=== PATIENT | female | born 1985 | race American Indian/Alaskan Native ===

== ENCOUNTER 2019-06-13 12:12 | Emergency (ER) | payer MEDICAID ==
[2019-06-13 12:29] VITALS: BP 106/61
--- NOTE | 2019-06-13 12:30 | Emergency Department Report ---
Abscess Boil HPI - HPI Chief Complaint: Dental/Oral Stated Complaint: TOOTH ACHE/ Time Seen by Provider: 06/13/19 12:29 Duration: 4 Days Location: Other Severity: Mild History: Yes Pain, No Fever, No Purulent Drainage, No Numbness, No Foreign Body, No Previous History, No Insect Bite HPI: TO ER CO L LOWER MOLAR PAIN. NO ABSCESS. 5 M. NO FEVER. TAKING PO. NO VAG BLEED OR DC. NO ABD PAIN. Home Medications: Previous Rx's Medication Instructions Recorded Last Taken Type Amoxicillin [Trimox CAP] 500 mg PO Q8H #30 capsule 06/13/19 Unknown Rx Allergies/Adverse Reactions: Allergies Allergy/AdvReac Type Severity Reaction Status Date / Time No Known Allergies Allergy Verified 06/13/19 12:26 ED Review of Systems ROS: Stated complaint: TOOTH ACHE/ Other details as noted in HPI Comment: All other systems reviewed and negative ED Past Medical Hx - Past Medical History Previous Medical History?: Yes Hx Asthma: Yes - Surgical History Past Surgical History?: No - Family History Family history: no significant - Social History Smoking Status: Never Smoker Substance Use Type: None - Medications Home Medications: Home Medications Medication Instructions Recorded Confirmed Last Taken Type Amoxicillin [Trimox CAP] 500 mg PO Q8H #30 capsule 06/13/19 Unknown Rx ED Abscess Boil Physical Exam - Exam General: Vital signs noted. No distress. Alert and acting appropriately. Exam: Yes Normal Neurologic Exam, Yes Normal Circulation, No Tenderness, No Fluctuance, No Heart Murmur ED Course Vital Signs 06/13/19 12:26 Temperature 98.1 F Pulse Rate 72 Respiratory 16 Rate Blood Pressure 106/61 [Right] O2 Sat by Pulse 98 Oximetry Critical care attestation.: If time is entered above; I have spent that time in minutes in the direct care of this critically ill patient, excluding procedure time. ED Medical Decision Making - Medical Decision Making simple dental pain tooth no 16 no trevor no abscess taking po no fever no trismus dc home with dc plan of care and dmd follow up Vital Signs 06/13/19 12:26 Temperature 98.1 F Pulse Rate 72 Respiratory 16 Rate Blood Pressure 106/61 [Right] O2 Sat by Pulse 98 Oximetry ED Disposition Clinical Impression: Pain, dental, Disposition: DC-01 TO HOME OR SELFCARE Is pt being admited?: No Does the pt Need Aspirin: No Condition: Stable Instructions: Dental Caries (ED), Toothache (ED) Additional Instructions: VIT DAILY AMOX ORDERED TODAY CONTINUE TYLENOL FOR PAIN FOLLOW UP WITH DMD AKILAH DRINK MILK DAILY Prescriptions: Amoxicillin [Trimox CAP] 500 mg PO Q8H #30 capsule Referrals: [facility] [Outside] - 3-5 Days [facility] [Outside] - 3-5 Days Time of Disposition: 12:32
== END 2019-06-13 12:50 | disposition home or self-care (01) ==
LOC: ED 12:12
DX: O26.899 Other specified pregnancy related conditions, unspecified trimester (principal); K08.89 Other specified disorders of teeth and supporting structures; O99.519 Diseases of the respiratory system complicating pregnancy, unspecified trimester; J45.909 Unspecified asthma, uncomplicated; Z3A.00 Weeks of gestation of pregnancy not specified
CPT/HCPCS: 99282

== ENCOUNTER → 2019-07-15 | Emergency (ER) | payer MEDICAID ==
[~2019-07-15] MED LIST: LACTATED RINGERS 500 ML IV ONE
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
== END ==
LOC: TRG 13:52 → ED 13:52 → TRG 13:52 → EDSTATUS 18:18
DX: Z53.21 Procedure and treatment not carried out due to patient leaving prior to being seen by health care provider (principal)
CPT/HCPCS: 76815

== ENCOUNTER 2019-10-13 23:09 | Inpatient (IN) | payer MEDICAID ==
[2019-10-13] MEDS ORDERED: LACTATED RINGERS 1,000 ML IV ONE (23:51)
[2019-10-14] MEDS ORDERED: ACETAMINOPHEN 325 MG TAB PO PRN (00:20)
--- NOTE | 2019-10-14 00:29 | History and Physical Report ---
History of Present Illness Date of examination: 10/14/19 Date of admission: 10/14/2019 Chief complaint: Contractions History of present illness: 34 year old presents with complaint of contractions. Patient receives care at [facility] and was able to access records via computer. LMP 02/09/19. EDC 11/09/19 (by 8 week, 6 day US). 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 labs are as follows: B+, antibody screen negative, rubella immune, hepatitis B surface antigen negative, HIV negative, RPR nonreactive, varicella immune, HSV 2 positive, hemoglobin electrophoresis AA, chlamydia negative, gonorrhea negative, trichomonas negative, OSB negative, panorama low risk. Past History Past Medical History: asthma, other (anemia) Past Surgical History: no surgical history [employer] History: herpes (on Valtrex suppression). denies: abnormal PAP smear, chlamydia, gonorrhea, hepatitis B, hepatitis C, HIV, syphilis, trichomonas Family/Genetic History: diabetes Social history: single, full code. denies: smoking, alcohol abuse, prescription drug abuse, IV drug use - Obstetrical History Expected Date of Delivery: 11/09/19 Actual Gestation: 36 Week(s) 2 Day(s) : 11 Para: 4 Hx # Term Pregnancies: 3 Number of Pregnancies: 1 Spontaneous Abortions: 2 Induced : 4 Number of Living Children: 4 Medications and Allergies Allergies Allergy/AdvReac Type Severity Reaction Status Date / Time No Known Allergies Allergy Verified 10/14/19 00:31 Home Medications Medication Instructions Recorded Confirmed Last Taken Type Amoxicillin [Trimox CAP] 500 mg PO Q8H #30 capsule 06/13/19 Unknown Rx Active Meds: Active Medications Acetaminophen (Tylenol) 650 mg PO Q4H PRN PRN Reason: Pain MILD(1-3)/Fever >100.5/SUNG Lactated Ringer's (Lactated Ringers) 1,000 mls @ 999 mls/hr IV BOLUS ONE Stop: 10/14/19 00:51 Lactated Ringer's (Lactated Ringers) 1,000 mls @ 125 mls/hr IV DIRECT [facility] Multivitamins/Iron/Calcium ( Vitamin) 1 each PO QDAY [facility] Review of Systems All systems: negative (contractions) - Vital Signs Vital signs: Vital Signs Pulse BP 86 120/69 10/13/19 23:35 10/13/19 23:35 Temp Pulse Resp BP Pulse Ox 73 111/63 10/13/19 23:55 10/13/19 23:55 - Physical Exam Abdomen: Positive: normal appearance, soft. Negative: distention, tenderness, guarding, rigidity Genitourinary (Female): Positive: normal external genitalia, normal perenium. Negative: perineal/vulvar lesions (no lesions noted on careful exam with bright light upon admission) Vagina: Positive: normal moisture Uterus: Positive: enlarged. Negative: tender Anus/Rectum: Positive: normal perianal skin Extremities: Positive: normal. Negative: tenderness, edema - Obstetrical FHR: category 1 Uterine Contraction Monitor Mode: External Cervical Dilatation: 3 Cervical Effacement Percentage: 80 station: 0 Uterine Contraction Pattern: Irregular Uterine Contraction Intensity: Mild Results Result Diagrams: 10/14/19 00:30 All other labs normal. Assessment and Plan A: at 36 2/7 weeks gestation. contractions. Noncompliant patient. HSV 2 positive serology, noncompliant with medications. P: Observe overnight. Continuous EFM. IV hydration. Urinalysis and drug screen. Valtrex 500 mg po BID. Discussed with patient importance of compliance with taking Valtrex and her other home medications.
[2019-10-14 01:08] LABS: Basophils % (Auto) 0.3 % (0.0-1.8); Eosinophils % (Auto) 0.4 % (0.0-4.3); Hematocrit 31.1 % (30.3-42.9); Hemoglobin 10.4 gm/dl (10.1-14.3); Lymphocytes # (Auto) 1.5 K/mm3 (1.2-5.4); Lymphocytes % (Auto) 20.3 % (13.4-35.0); Mean Corpuscular HGB Conc 33 % (30-34); Mean Corpuscular Volume 84 fl (79-97); Monocytes # (Auto) 0.5 K/mm3 (0.0-0.8); Monocytes % (Auto) 7.4 % (0.0-7.3); Platelet Count 133 K/mm3 (140-440); Red Blood Count 3.73 M/mm3 (3.65-5.03); Red Cell Distribution Width 13.5 % (13.2-15.2)
[2019-10-14 01:23] LABS: Amphetamine Screen,Urine PRESUMPTIVE NEGATIVE; Benzodiazepines Screen,Urine PRESUMPTIVE NEGATIVE; Cannabinoid Screen,Urine PRESUMPTIVE NEGATIVE; Cocaine Screen,Urine PRESUMPTIVE NEGATIVE; Methadone Screen,Urine PRESUMPTIVE NEGATIVE; Opiate Screen,Urine PRESUMPTIVE NEGATIVE
[2019-10-14 01:24] LABS: Bilirubin,Urine NEG (Negative); Blood,Urine NEG (Negative); Color,Urine Straw (Yellow); Mucus,Urine FEW /HPF; Protein,Urine <15 mg/dL mg/dL (Negative); Urobilinogen,Urine < 2.0 mg/dL (<2.0)
[2019-10-14] MEDS: valACYclovir 500 MG TAB PO SCH ×3 (02:12→22:07)
[2019-10-14] MEDS: LACTATED RINGERS 1,000 ML IV SCH ×2 (02:13→22:09)
[2019-10-14] MEDS: PRENATAL VIT27-FE FUMARATE-FOLIC ACID VIT TAB PO SCH (10:28)
--- NOTE | 2019-10-14 10:28 | Progress Note ---
Assessment and Plan A: at 36 weeks, 2 days gestation. contractions. History of previous . BHAVANI 5.8 cm. Negative fern test, negative vaginal speculum exam. No evidence of ROM. Lack of social support; patient reports she desires to deliver . P: Social service consult. Discussed with patient risks of delivering and that she needs to wait until she is full term to deliver as long as she and fetus are doing well. Had long discussion with patient re: need to take her medications as prescribed. milk processing worker to see pt. Continue IV hydration. Repeat BHAVANI tomorrow AM. Continuous EFM. Continue Valtrex suppression of HSV. GBS swab done. Spoke with Dr. Aleman re: this patient and she recommended keeping patient in hospital until tomorrow, having social science research assistant see patient due to the above social risk factors. Subjective - Subjective Date of service: 10/14/19 Principal diagnosis: at 36 weeks, 2 days gestation Interval history: Patient observed overnight for contractions. Patient has had steroids for FLM during hospital admission in early August. Patient denies vaginal bleeding and states her contractions have become less frequent overnight. Patient denies leaking of water. Reviewed FHR tracing from overnight. A few brief variable FHR decelerations with rapid return to baseline noted on review of tracing. No variable noted now. Category 1 tracing. BHAVANI 5.8 cm per US this AM. BPP 8/8. Patient reports active movement. No cervical changed noted on SVE. Patient states she has recently moved here from [place] and has no family or friends here; states she does not have a support system here in [place] and if, needed, does not even have anyone to drive her anywhere in case of emergency. Patient states she has not been taking her Valtrex at home as prescribed for HSV suppression. She also refused Jenny injections during her and states she has not been taking the vaginal progesterone that was prescribed to her on a regular basis. Patient states she wants to deliver early. Patient reports: movement normal, contractions, no new complaints, no loss of fluid, no vaginal bleeding Objective - Vital Signs Vital Signs: Vital Signs - 12hr 10/13/19 10/13/19 10/13/19 23:30 23:35 23:55 Temperature 97.4 F L Pulse Rate 86 86 73 Respiratory 18 Rate Blood Pressure 120/69 111/63 Blood Pressure 120/69 [Left] O2 Sat by Pulse Oximetry 10/14/19 10/14/19 07:28 09:16 Temperature 98.2 F Pulse Rate 74 74 Respiratory 16 Rate Blood Pressure 127/56 Blood Pressure 127/56 [Left] O2 Sat by Pulse 97 Oximetry - Exam Narrative Exam: BHAVANI 5.8 cm. BPP 8/8. Speculum exam performed: no pooling noted; thick white vaginal discharge noted. Fern test negative. Urine seen coming from urethra when patient coughs. Abdomen: Present: normal appearance, soft. Absent: distention, tenderness, guarding, rigidity Uterus: Present: normal, firm, fundal height above umbilicus. Absent: bogginess, tenderness FHR: category 1 Uterine Contraction Monitor Mode: External Cervical Dilatation: 3 Cervical Effacement Percentage: 80 station: 0 Uterine Contraction Pattern: Irregular Uterine Contraction Intensity: Mild Extremities: normal - Labs Labs: Abnormal Labs 10/14/19 00:30 Plt Count 133 L [place] % (Auto) 7.4 H Seg Neutrophils % 71.6 H Laboratory Results - last 24 hr 10/13/19 10/13/19 10/14/19 23:00 23:00 00:30 WBC 7.5 RBC 3.73 Hgb 10.4 Hct 31.1 MCV 84 MCH 28 MCHC 33 RDW 13.5 Plt Count 133 L Lymph % (Auto) 20.3 [place] % (Auto) 7.4 H Eos % (Auto) 0.4 Baso % (Auto) 0.3 Lymph # 1.5 [place] # 0.5 Eos # 0.0 Baso # 0.0 Seg Neutrophils % 71.6 H Seg Neutrophils # 5.3 Urine Color Straw Urine Turbidity Clear Urine pH 6.0 Ur Specific [place] 1.010 Urine Protein <15 mg/dl Urine Glucose (UA) Neg Urine Ketones Neg Urine Blood Neg Urine Nitrite Neg Urine Bilirubin Neg Urine Urobilinogen < 2.0 Ur Leukocyte Esterase Neg Urine WBC (Auto) 1.0 Urine RBC (Auto) 1.0 U Epithel Cells (Auto) 1.0 Urine Mucus Few Urine Opiates Screen Presumptive negative Urine Methadone Screen Presumptive negative Ur Barbiturates Screen Presumptive negative Ur Phencyclidine Scrn Presumptive negative Ur Amphetamines Screen Presumptive negative U Benzodiazepines Scrn Presumptive negative Urine Cocaine Screen Presumptive negative U Marijuana (THC) Screen Presumptive negative Drugs of Abuse Note Disclamer Blood Type Antibody Screen 10/14/19 00:30 WBC RBC Hgb Hct MCV MCH MCHC RDW Plt Count Lymph % (Auto) [place] % (Auto) Eos % (Auto) Baso % (Auto) Lymph # [place] # Eos # Baso # Seg Neutrophils % Seg Neutrophils # Urine Color Urine Turbidity Urine pH Ur Specific [place] Urine Protein Urine Glucose (UA) Urine Ketones Urine Blood Urine Nitrite Urine Bilirubin Urine Urobilinogen Ur Leukocyte Esterase Urine WBC (Auto) Urine RBC (Auto) U Epithel Cells (Auto) Urine Mucus Urine Opiates Screen Urine Methadone Screen Ur Barbiturates Screen Ur Phencyclidine Scrn Ur Amphetamines Screen U Benzodiazepines Scrn Urine Cocaine Screen U Marijuana (THC) Screen Drugs of Abuse Note Blood Type B POSITIVE Antibody Screen Negative
--- NOTE | 2019-10-14 10:31 | Ultrasound Report ---
ULTRASOUND BIOPHYSICAL PROFILE INDICATION / CLINICAL INFORMATION: BHAVANI. COMPARISON: None available. FINDINGS: BREATHING MOVEMENT = 2 GROSS BODY MOVEMENT = 2 TONE = 2 QUALITATIVE AMNIOTIC FLUID VOLUME = 2 TOTAL BIOPHYSICAL SCORE = 8/8 AMNIOTIC FLUID INDEX (cm) = 5.8 PRESENTATION: Cephalic. HEART RATE (beats per minute): 134 IMPRESSION: 1. biophysical profile = 8/8 2. Mildly decreased amniotic fluid index, measuring 5.8 cm. Signer Name: Hans Desai MD Signed: 10/14/2019 10:26 AM Workstation Name: [email or web address]
--- NOTE | 2019-10-14 12:06 | Progress Note ---
Subjective - Subjective Date of service: 10/14/19 Principal diagnosis: at 36 weeks, 2 days gestation Interval history: Patient seen and examined on AM rounds. Agree with CNM progress assessment and plan of care. Patient defensive during exam and history taking. Concern for lack of social support Not in labor. Maternal/ well-being reassuring overall. Plan for discharge to home tomorrow. Annette Aleman MD Patient reports: movement normal, contractions, no new complaints, no loss of fluid, no vaginal bleeding Objective - Vital Signs Vital Signs: Vital Signs - 12hr 10/14/19 10/14/19 10/14/19 07:28 09:16 11:35 Temperature 98.2 F 97.6 F Pulse Rate 74 74 74 Respiratory 16 18 Rate Blood Pressure 127/56 Blood Pressure 127/56 108/55 [Left] O2 Sat by Pulse 97 99 Oximetry 10/14/19 11:36 Temperature Pulse Rate 74 Respiratory Rate Blood Pressure 108/55 Blood Pressure [Left] O2 Sat by Pulse Oximetry - Labs Labs: Abnormal Labs 10/14/19 00:30 Plt Count 133 L [place] % (Auto) 7.4 H Seg Neutrophils % 71.6 H Laboratory Results - last 24 hr 10/13/19 10/13/19 10/14/19 23:00 23:00 00:30 WBC 7.5 RBC 3.73 Hgb 10.4 Hct 31.1 MCV 84 MCH 28 MCHC 33 RDW 13.5 Plt Count 133 L Lymph % (Auto) 20.3 [place] % (Auto) 7.4 H Eos % (Auto) 0.4 Baso % (Auto) 0.3 Lymph # 1.5 Keith # 0.5 Eos # 0.0 Baso # 0.0 Seg Neutrophils % 71.6 H Seg Neutrophils # 5.3 Urine Color Straw Urine Turbidity Clear Urine pH 6.0 Ur Specific [place] 1.010 Urine Protein <15 mg/dl Urine Glucose (UA) Neg Urine Ketones Neg Urine Blood Neg Urine Nitrite Neg Urine Bilirubin Neg Urine Urobilinogen < 2.0 Ur Leukocyte Esterase Neg Urine WBC (Auto) 1.0 Urine RBC (Auto) 1.0 U Epithel Cells (Auto) 1.0 Urine Mucus Few Urine Opiates Screen Presumptive negative Urine Methadone Screen Presumptive negative Ur Barbiturates Screen Presumptive negative Ur Phencyclidine Scrn Presumptive negative Ur Amphetamines Screen Presumptive negative U Benzodiazepines Scrn Presumptive negative Urine Cocaine Screen Presumptive negative U Marijuana (THC) Screen Presumptive negative Drugs of Abuse Note Disclamer Blood Type Antibody Screen 10/14/19 00:30 WBC RBC Hgb Hct MCV MCH MCHC RDW Plt Count Lymph % (Auto) Keith % (Auto) Eos % (Auto) Baso % (Auto) Lymph # Keith # Eos # Baso # Seg Neutrophils % Seg Neutrophils # Urine Color Urine Turbidity Urine pH Ur Specific [place] Urine Protein Urine Glucose (UA) Urine Ketones Urine Blood Urine Nitrite Urine Bilirubin Urine Urobilinogen Ur Leukocyte Esterase Urine WBC (Auto) Urine RBC (Auto) U Epithel Cells (Auto) Urine Mucus Urine Opiates Screen Urine Methadone Screen Ur Barbiturates Screen Ur Phencyclidine Scrn Ur Amphetamines Screen U Benzodiazepines Scrn Urine Cocaine Screen U Marijuana (THC) Screen Drugs of Abuse Note Blood Type B POSITIVE Antibody Screen Negative
[2019-10-15] MEDS ORDERED: ZOLPIDEM 5 MG TAB PO ONE (00:15)
[2019-10-15] MEDS: valACYclovir 500 MG TAB PO SCH (09:29)
[2019-10-15] MEDS: PRENATAL VIT27-FE FUMARATE-FOLIC ACID VIT TAB PO SCH (09:29)
--- NOTE | 2019-10-15 09:37 | Progress Note ---
Assessment and Plan - Patient Problems (1) 36 weeks gestation of Current Visit: Yes Status: Acute (2) labor in third trimester without delivery Current Visit: Yes Status: Acute Plan to address problem: No contractions present Patient declined elementary school social worker consult If BPP/BHAVANI normal, will discharge to home today Keep scheduled appointment at [facility] on 10/16/19 or follow-up as needed (3) Oligohydramnios in third trimester Current Visit: Yes Status: Acute Qualifiers: Fetus number: single or unspecified fetus Qualified Code(s): O41.03X0 - Oligohydramnios, third trimester, not applicable or unspecified Plan to address problem: BHAVANI 5.8cm on 10/14/19 Repeat BPP/BHAVANI today Subjective - Subjective Date of service: 10/15/19 Principal diagnosis: IUP @ 36 weeks 3 days, Labor, Oligohydramnios Interval history: see H&P and OB Progress Notes Patient reports: movement normal, contractions, no new complaints, no loss of fluid, no vaginal bleeding Objective - Vital Signs Vital Signs: Vital Signs - 12hr 10/15/19 10/15/19 10/15/19 00:30 04:15 08:04 Temperature 97.9 F 98.5 F Pulse Rate 73 75 76 Respiratory 18 16 Rate Blood Pressure 107/56 97/51 99/55 Blood Pressure 107/56 97/51 [Right] O2 Sat by Pulse Oximetry 10/15/19 08:25 Temperature 97 F L Pulse Rate 76 Respiratory 20 Rate Blood Pressure Blood Pressure 99/55 [Right] O2 Sat by Pulse 97 Oximetry - Exam FHR: auscultation normal, category 1 FHR comments: baseline 135, moderate variability, 15x15 accels, no decels Uterine Contraction Monitor Mode: External Cervical Dilatation: 3 Cervical Effacement Percentage: 60 station: -1 Uterine Contraction Pattern: Absent - Labs Labs: Abnormal Labs 10/14/19 00:30 Plt Count 133 L [place] % (Auto) 7.4 H Seg Neutrophils % 71.6 H
--- NOTE | 2019-10-15 10:25 | Event Note ---
Date: 10/15/19 I received a phone call from Raven MEJIA en route to the hospital that Ms. Winston has a heart murmur and needs outpatient cardiology consult after discharge from the hospital. Patient denies history of heart murmur and that she was never informed of this diagnosis. Upon review of the patient's chart there is no documentation of a heart murmur. Patient insists on inpatient cardiology consult. EKG and cardiology consult ordered.
[2019-10-15] MEDS ORDERED: fentaNYL 100 MCG/2 ML INJ IV PRN (12:30)
[2019-10-15] MEDS ORDERED: LIDOCAINE (2%) 20 MG/1 ML VIAL 20 ML MDV INFILTRATI NR (12:30)
--- NOTE | 2019-10-15 12:31 | Consultation ---
History of Present Illness Consult date: 10/15/19 Requesting physician: FLAVIO DONOVAN Consult reason: other (heart murmur) History of present illness: The pt is a 34 YO female with a past medical history of asthma, anemia, anxiety. She is previously unknown to our practice. She is 36 weeks and presented with c/o abdominal pain. Her abdominal pain is currently resolved. She states that she was told her pain was r/t contractions, she is not currently in labor. She is to be discharged home today. Cardiology has been consulted for "heart murmur". Pt denies any cardiac complaints. She denies any known cardiac issues, including heart murmur. Past History Past Medical History: anemia, other (asthma) Social history: single, full code. denies: smoking, alcohol abuse, prescription drug abuse, IV drug use Medications and Allergies Allergies Allergy/AdvReac Type Severity Reaction Status Date / Time No Known Allergies Allergy Verified 10/14/19 00:31 Home Medications Medication Instructions Recorded Confirmed Last Taken Type No Known Home Medications [No 10/14/19 10/14/19 Unknown History Reported Home Medications] Active Meds: Active Medications Acetaminophen (Tylenol) 650 mg PO Q4H PRN PRN Reason: Pain MILD(1-3)/Fever >100.5/SUNG Last Admin: 10/14/19 02:57 Dose: 650 mg Documented by: Lactated Ringer's (Lactated Ringers) 1,000 mls @ 125 mls/hr IV DIRECT [facility] Last Infusion: 10/14/19 23:20 Dose: 0 mls/hr Documented by: Multivitamins/Iron/Calcium ( Vitamin) 1 each PO QDAY [facility] Last Admin: 10/15/19 09:29 Dose: 1 each Documented by: Valacyclovir HCl (Valtrex) 500 mg PO BID [facility] Last Admin: 10/15/19 09:29 Dose: 500 mg Documented by: Review of Systems Constitutional: no fever, no chills, no sweats Ears, nose, mouth and throat: no ear pain, no nose pain, no sinus pressure, no sinus pain Cardiovascular: no chest pain, no orthopnea, no palpitations, no rapid/irregular heart beat, no edema, no syncope, no lightheadedness, no shortness of breath, no high blood pressure Respiratory: no cough, no shortness of breath, no congestion, no wheezing, no pain on inspiration Gastrointestinal: abdominal pain, other (), no nausea, no vomiting, no diarrhea Genitourinary Female: , no flank pain, no dysuria, no urinary frequency, no urgency Musculoskeletal: no neck stiffness, no neck pain, no shooting arm pain, no arm numbness/tingling, no low back pain, no shooting leg pain Integumentary: no rash, no pruritis, no redness, no sores, no wounds Neurological: no head injury, no paralysis, no weakness, no parathesias, no numbness, no tingling, no seizures, no syncope Psychiatric: no anxiety Endocrine: no cold intolerance, no heat intolerance Hematologic/Lymphatic: no easy bruising, no easy bleeding Allergic/Immunologic: no urticaria, no wheezing Physical Examination Vital Signs Temp Pulse Resp BP 97.4 F L 86 18 120/69 10/13/19 23:30 10/13/19 23:30 10/13/19 23:30 10/13/19 23:30 General appearance: no acute distress HEENT: Positive: PERRL, Normocephaly, Mucus Membranes Moist Neck: Positive: neck supple, trachea midline Cardiac: Positive: Reg Rate and Rhythm, S1/S2. Negative: Audible Murmur, Systolic Murmur, Diastolic Murmur Lungs: Positive: Normal Exam Neuro: Positive: Grossly Intact Abdomen: Positive: Other () Skin: Negative: Rash Musculoskeletal: No Pain Extremities: Absent: edema Results 10/14/19 00:30 - Imaging and Cardiology EKG: report reviewed, image reviewed EKG interpretations - Telemetry EKG Rhythm: Sinus Rhythm - EKG Sinus rhythms and dysrhythmias: sinus rhythm Assessment and Plan Currently stable cardiac status. Pt's physical exam is benign, no evidence of cardiac murmur. ECG shows NSR, no acute findings. Nothing further to add from cardiac perspective at this time. Pt may discharge from cardiology standpoint. The patient has been seen in conjunction with Dr. Cárdenas who agrees with the assessment and plan of care. - Patient Problems (1) 36 weeks gestation of Current Visit: Yes Status: Acute (2) Uterine contractions during Current Visit: Yes Status: Acute
[2019-10-15] MEDS ORDERED: ePHEDrine SULFATE 50 MG/1 ML INJ IV PRN (13:00)
[2019-10-15] MEDS ORDERED: TERBUTALINE 1 MG/1 ML INJ SUB-Q PRN (13:00)
[2019-10-15] MEDS ORDERED: OXYTOCIN DRIP 30 UNITS/500 ML BAG IV SCH (13:00)
[2019-10-15] MEDS ORDERED: LACTATED RINGERS 1,000 ML IV SCH (13:00)
[2019-10-15] MEDS ORDERED: ONDANSETRON 4 MG/2 ML INJ IV PRN ×2 (13:00→20:13)
[2019-10-15] MEDS ORDERED: OXYTOCIN 20 UNIT/1000ML DRIP 20 UNITS/1,000 ML BAG IV SCH ×2 (13:00→21:00)
[2019-10-15] MEDS ORDERED: BUTORPHANOL 2 MG/1 ML INJ IV PRN (13:00)
[2019-10-15] MEDS ORDERED: MINERAL OIL 30 ML ORAL LIQD PO PRN (13:00)
--- NOTE | 2019-10-15 14:14 | Progress Note ---
Assessment and Plan - Patient Problems (1) 36 weeks gestation of Current Visit: Yes Status: Acute (2) Oligohydramnios in third trimester Current Visit: Yes Status: Acute Qualifiers: Fetus number: single or unspecified fetus Qualified Code(s): O41.03X0 - Oligohydramnios, third trimester, not applicable or unspecified Plan to address problem: BHAVANI 5.8cm on 10/14/19 Repeat BHAVANI today is 3.9cm (3) labor in third trimester without delivery Current Visit: Yes Status: Acute Plan to address problem: Induction of labor for oligohydramnios Plan of care discussed with Dr. Luna and he agreed Oxytocin ordered Ampicillin for GBS prophylaxis Anticipate vaginal delivery Subjective - Subjective Date of service: 10/15/19 Principal diagnosis: IUP @ 36 weeks 3 days, Labor, Oligohydramnios Interval history: see H&P, OB Progress Notes, Event Note and Cardiology-Consult Note Patient reports: movement normal, contractions, no new complaints, no loss of fluid, no vaginal bleeding Objective - Vital Signs Vital Signs: Vital Signs - 12hr 10/15/19 10/15/19 10/15/19 04:15 08:04 08:25 Temperature 98.5 F 97 F L Pulse Rate 75 76 76 Respiratory 16 20 Rate Blood Pressure 97/51 99/55 Blood Pressure 97/51 99/55 [Right] O2 Sat by Pulse 97 Oximetry 10/15/19 10/15/19 12:30 12:32 Temperature 97 F L Pulse Rate 86 86 Respiratory 20 Rate Blood Pressure 140/84 Blood Pressure 140/84 [Right] O2 Sat by Pulse Oximetry - Exam FHR: auscultation normal, category 1 FHR comments: baseline 135, moderate variability, 15x15 accels, no decels Uterine Contraction Monitor Mode: External Cervical Dilatation: 3 Cervical Effacement Percentage: 60 station: -1 Uterine Contraction Pattern: Absent - Labs Labs: Abnormal Labs 10/14/19 00:30 Plt Count 133 L [place] % (Auto) 7.4 H Seg Neutrophils % 71.6 H
[2019-10-15] MEDS ORDERED: AMPICILLIN/NS 2 GM/100 ML 2 GM/100 ML BAG IV ONE (14:20)
--- NOTE | 2019-10-15 14:46 | Ultrasound Report ---
Limited OB Ultrasound Biophysical profile HISTORY: Oligohydramnios, 36 weeks gestation. TECHNIQUE: Grayscale and color Doppler imaging performed. COMPARISON: Ultrasound from 10/14/2019 FINDINGS: There is a single viable intrauterine gestation which is cephalic in presentation. The hear t rate is 147 bpm. BHAVANI is low measuring 3.9 cm. The BHAVANI measured 5.8 cm yesterday. On biophysical profile, the fetus received a score of 2 out of 2 for breathing movement, movement, po sture/tone, and qualitative BHAVANI. Total score was 8 out of 8. IMPRESSION: 1. Worsened oligohydramnios measuring 3.9 cm on today's exam, 5.8 cm yesterday. 2. Normal biophysical profile. Signer Name: Ed Burch MD Signed: 10/15/2019 2:42 PM Workstation Name: [id number]
[2019-10-15] MEDS ORDERED: AMPICILLIN/NS 1 GM/50 ML 1 GM/50 ML BAG IV SCH (18:00)
--- NOTE | 2019-10-15 20:12 | Procedure Note ---
OB Delivery Note - Delivery Date of Delivery: 10/15/19 Surgeon: THANH ROCHA Estimated blood loss: 300cc - Vaginal Delivery presentation: vertex Delivery position: OA Intrapartum events: labor-<37 weeks Delivery induction: oxytocin Delivery augmentation: pitocin Delivery monitor: external FHT, external uterine Route of delivery: Delivery placenta: spontaneous Delivery cord: 3 umbilical vessels Episiotomy: none Delivery laceration: none Anesthesia: intravenous Delivery comments: Infant delivered OA and placed on Mom's chest for [id number] bonding and delayed cord clamping, cut by big sister - Infant A at 1 minute: 8 at 5 minutes: 9 Gender: Female (2852gms)
[2019-10-15] MEDS ORDERED: diphenhydrAMINE 25 MG CAP PO PRN (20:13)
[2019-10-15] MEDS ORDERED: MAGNESIUM HYDROXIDE (MOM) ORAL LIQD UDC PO PRN (20:13)
[2019-10-15] MEDS ORDERED: ACETAMINOPHEN 325 MG TAB PO PRN (20:13)
[2019-10-15] MEDS ORDERED: PROMETHAZINE 25 MG RECT SUPP PR PRN (20:13)
[2019-10-15] MEDS ORDERED: LANOLIN/ZINC/DIMETHICONE (LANSINOH) 7 GM TP PRN (20:13)
[2019-10-15] MEDS ORDERED: HYDROcodone/ACETAMINOPHEN 5-325 MG TAB PO PRN (20:13)
[2019-10-15] MEDS ORDERED: WITCH HAZEL/ GLYCERIN PAD TP PRN (20:13)
[2019-10-15] MEDS ORDERED: PROMETHAZINE 25 MG TAB PO PRN (20:13)
[2019-10-15] MEDS: IBUPROFEN 600 MG TAB PO SCH (20:37)
[2019-10-16] MEDS: IBUPROFEN 600 MG TAB PO SCH ×4 (03:58→21:57)
[2019-10-16] MEDS ORDERED: TETANUS,DIPH,PERTUSS(ACELL) VACCINE 0.5 ML SYRINGE IM ONE (06:00)
[2019-10-16] MEDS ORDERED: MEASLES, MUMPS & RUBELLA 12,500 UNIT/0.5 ML VACCINE SUB-Q ONE (06:00)
[2019-10-16 08:12] LABS: Hematocrit 28.3 % (30.3-42.9); Hemoglobin 9.3 gm/dl (10.1-14.3)
--- NOTE | 2019-10-16 09:43 | Progress Note ---
Assessment and Plan - Patient Problems (1) (normal spontaneous vaginal delivery) Current Visit: Yes Status: Acute Plan to address problem: Continue routine PP orders Anticipate d/c home tomorrow F/U in office in 6 wks for PPV (2) Anemia Current Visit: Yes Status: Acute Qualifiers: Anemia type: other cause Other causes of anemia: acute posthemorrhagic Qualified Code(s): D62 - Acute posthemorrhagic anemia Plan to address problem: Asymptomatic Continue daily iron supplementation as directed Increase iron rich foods into diet Subjective - Subjective Date of service: 10/16/19 Principal diagnosis: ; PPD#1 Interval history: See admission H & P; OB delivery summary and PP progress notes Patient reports: appetite normal, voiding normally, pain well controlled, flatus, ambulating normally [place]: doing well, bottle feeding (and ) Objective - Vital Signs Latest vital signs: Vital Signs Temp Pulse Resp BP BP Pulse Ox 10/16/19 07:59 98.3 F 61 20 105/57 97 10/16/19 04:28 98.5 F 61 20 120/71 100 10/15/19 21:55 73 109/76 10/15/19 20:52 73 131/65 10/15/19 20:22 75 114/73 10/15/19 20:07 91 H 110/68 10/15/19 20:02 89 99 10/15/19 20:00 97.9 F 97 H 16 130/72 100 10/15/19 19:57 92 H 98 10/15/19 19:52 97 H 130/72 100 10/15/19 19:26 97 H 130/79 10/15/19 17:20 97.6 F 10/15/19 17:19 74 133/85 10/15/19 12:32 97 F L 86 20 140/84 10/15/19 12:30 86 140/84 Intake and Output 10/15/19 10/16/19 10/16/19 23:59 07:59 15:59 Intake Total 23.834 240 Output Total 200 900 Balance -176.166 -660 Intake: IV 23.834 PITOCin/NS 30 UNIT/500ML 23.834 30 units In 500 ml @ 2 mls/hr IV TITR MAI Rx#: [id number] Oral 240 Output: Urine 200 900 Void 200 900 Other: Total, Intake Amount 240 Total, Output Amount 200 600 # Voids Void 1 1 Estimated Blood Loss 300 - Exam Breasts: Present: normal Cardiovascular: Present: Regular rate Lungs: Present: Normal air movement Abdomen: Present: soft Uterus: Present: firm, fundal height below umbilicus (U-2) Extremities: Present: normal Deep Tendon Reflex Grade: Normal +2 - Labs Labs: Abnormal lab results 10/16/19 Range/Units 08:02 Hgb 9.3 L (10.1-14.3) gm/dl Hct 28.3 L (30.3-42.9) %
--- NOTE | 2019-10-16 09:48 | Discharge Summary ---
Providers - Providers Date of Admission: 10/14/19 02:30 Date of discharge: 10/17/19 (0900) Attending physician: PAUL SIMMONS MD 10/14/19 09:59 Consult to Case Management [CONS] Routine Services Needed at Discharge: Beauty Consultant Additional Physician Instructions: Recently moved here from [place]. No family or friends in area. Patient reports wanting to go into labor at a gestation. Noncompliant with home medications recommended by MDs at office. 10/15/19 10:26 Consult to Physician [CONS] Routine Comment: Consulting Provider: ARSENIO RAO Physician Instructions: Reason For Exam: Heart Murmur. 36 weeks gestation Primary care physician: PAUL SIMMONS MD Hospitalization Reason for admission: IUP - , other (Oligohydramnios) Delivery: Episiotomy: none Laceration: none Other procedures: none complications: none Discharge diagnosis: other (Anemia), delivery baby: female Hospital course: See admission H & P; OB delivery summary and PP progress notes Condition at discharge: Good Disposition: DC-01 TO HOME OR SELFCARE - Discharge Diagnoses (1) (normal spontaneous vaginal delivery) Status: Acute (2) Anemia Status: Acute Qualifiers: Anemia type: other cause Other causes of anemia: acute posthemorrhagic Qualified Code(s): D62 - Acute posthemorrhagic anemia Plan - Discharge Medications Prescriptions: Ferrous Sulfate [Slow Release Iron 250 MG] 250 mg PO BID 30 Days #60 tablet.er - Provider Discharge Summary Activity: routine, no sex for 6 weeks, no heavy lifting 4 weeks, no strenuous exercise Diet: other (Iron rich diet) Instructions: routine Additional instructions: [] Smoking cessation referral if applicable(refer to patient education folder for contact #) [] Refer to [facility] Booklet Call your doctor immediately for: * Fever > 100.5 * Heavy vaginal bleeding ( >1 pad per hour) * Severe persistent headache * Shortness of breath * Reddened, hot, painful area to leg or breast * Drainage or odor from incision. * Continue daily oral iron supplementation as directed - Follow up plan Follow up: PAUL SIMMONS MD [Primary Care Provider] - 6 Weeks
[2019-10-16] MEDS: PRENATAL VIT27-FE FUMARATE-FOLIC ACID VIT TAB PO SCH (10:05)
[2019-10-16] MEDS: FERROUS SULFATE 325 MG TAB PO SCH ×2 (10:05→21:58)
[2019-10-16] MEDS: DOCUSATE SODIUM 100 MG CAP PO SCH ×2 (10:05→21:58)
[2019-10-16] MEDS: valACYclovir 500 MG TAB PO SCH (16:41)
[2019-10-17] MEDS: PRENATAL VIT27-FE FUMARATE-FOLIC ACID VIT TAB PO SCH (09:11)
[2019-10-17] MEDS: FERROUS SULFATE 325 MG TAB PO SCH (09:11)
[2019-10-17] MEDS: DOCUSATE SODIUM 100 MG CAP PO SCH (09:12)
[2019-10-17 10:00] VITALS: BP 103/63
[2019-10-18] MEDS ORDERED: FLU VACC QUAD 2019-20 (3 YR UP)/PF 60 MCG/0.5 ML SYRINGE IM ONE (12:00)
== END 2019-10-17 17:49 | disposition home or self-care (01) | DRG 774 ==
LOC: TRG 23:09 → OBSVTOIN 10-14 02:30 → LD 10-14 02:30 → OB 10-15 23:10
PROVIDERS: ADMIT Obstetrics & Gynecology; ATTEND Obstetrics & Gynecology
PROC: 10E0XZZ Delivery of Products of Conception, External Approach (ICD-10-PCS; principal; 2019-10-15)
PROC: 3E033VJ Introduction of Other Hormone into Peripheral Vein, Percutaneous Approach (ICD-10-PCS; 2019-10-15)
PROC: 3E0234Z Introduction of Serum, Toxoid and Vaccine into Muscle, Percutaneous Approach (ICD-10-PCS; 2019-10-16)
DX: O60.14X0 Preterm labor third trimester with preterm delivery third trimester, not applicable or unspecified (principal); O98.52 Other viral diseases complicating childbirth; O41.03X0 Oligohydramnios, third trimester, not applicable or unspecified; O99.52 Diseases of the respiratory system complicating childbirth; J45.909 Unspecified asthma, uncomplicated; B00.9 Herpesviral infection, unspecified; O99.02 Anemia complicating childbirth; O99.344 Other mental disorders complicating childbirth; F41.9 Anxiety disorder, unspecified; D62 Acute posthemorrhagic anemia; Z23 Encounter for immunization; Z3A.36 36 weeks gestation of pregnancy; Z37.0 Single live birth; Z83.3 Family history of diabetes mellitus; Z79.899 Other long term (current) drug therapy; Z91.19 Patient's noncompliance with other medical treatment and regimen
CPT/HCPCS: 36415; 76815; 76819; 80307; 81001; 85014; 85018; 85025; 86850; 86900; 86901; 87086; 87116; 93005; 93010; G0378; J0290; J2590; J7120

== ENCOUNTER 2019-11-08 12:49 | Emergency (ER) | payer MEDICAID ==
[2019-11-08 13:11] VITALS: BP 127/62
--- NOTE | 2019-11-08 13:11 | Event Note ---
ED Screening Note Date of service: 11/08/19 Time: 13:09 ED Screening Note: 34 y/o female comes in for tampon retained. This initial assessment/diagnostic orders/clinical plan/treatment(s) is/are subject to change based on patients health status, clinical progression and re- assessment by fellow clinical providers in the ED. Further treatment and workup at subsequent clinical providers discretion. Patient/guardian urged not to elope from the ED as their condition may be serious if not clinically assessed and managed. Initial orders include:
--- NOTE | 2019-11-08 13:53 | Emergency Department Report ---
ED Female HPI - General Chief complaint: Skin/Abscess/Foreign Body Stated complaint: TAMPON STUCK IN VAGINAL AREA/CP Time Seen by Provider: 11/08/19 13:09 Source: patient Mode of arrival: Ambulatory Limitations: No Limitations - History of Present Illness Initial comments: This is a 34-year-old female who presents to ED complaining having a tampon swathi ck in her vagina. Patient states she put the tampon in around 9 PM last night and was unable to get it out. Patient denies any fevers/chills/nausea vomiting/abdominal pain/pelvic pain or any other problems. - Related Data Previous Rx's Medication Instructions Recorded Last Taken Type Ferrous Sulfate [Slow Release Iron 250 mg PO BID 30 Days #60 tablet.er 10/16/19 Unknown Rx 250 MG] Cyclobenzaprine [Flexeril] 10 mg PO QHS PRN #10 tablet 11/19/19 Unknown Rx Naproxen [EC-Naprosyn] 500 mg PO BID PRN #14 tablet. 11/19/19 Unknown Rx Allergies Allergy/AdvReac Type Severity Reaction Status Date / Time No Known Allergies Allergy Verified 11/08/19 12:54 ED Review of Systems ROS: Stated complaint: TAMPON STUCK IN VAGINAL AREA/CP Other details as noted in HPI Comment: All other systems reviewed and negative ED Past Medical Hx - Past Medical History Hx Hypertension: No Hx Congestive Heart Failure: No Hx Diabetes: No Hx Deep Vein Thrombosis: No Hx Renal Disease: No Hx Sickle Cell Disease: No Hx Seizures: No Hx Asthma: Yes Hx COPD: No Hx HIV: No - Social History Smoking Status: Never Smoker Substance Use Type: None - Medications Home Medications: Home Medications Medication Instructions Recorded Confirmed Last Taken Type Ferrous Sulfate [Slow Release Iron 250 mg PO BID 30 Days #60 tablet.er 10/16/19 Unknown Rx 250 MG] Cyclobenzaprine [Flexeril] 10 mg PO QHS PRN #10 tablet 11/19/19 Unknown Rx Naproxen [EC-Naprosyn] 500 mg PO BID PRN #14 tablet. 11/19/19 Unknown Rx ED Physical Exam - General Limitations: No Limitations General appearance: alert, in no apparent distress - Head Head exam: Present: atraumatic, normocephalic - Eye Eye exam: Present: normal appearance - ENT ENT exam: Present: mucous membranes moist - Neck Neck exam: Present: normal inspection - Respiratory Respiratory exam: Present: normal lung sounds bilaterally. Absent: respiratory distress - Cardiovascular Cardiovascular Exam: Present: regular rate, normal rhythm. Absent: systolic murmur, diastolic murmur, rubs, gallop - GI/Abdominal GI/Abdominal exam: Present: soft, normal bowel sounds - External exam: Present: normal external exam Speculum exam: Present: normal speculum exam, vaginal bleeding (within nml limits in vault), other (closed cervix). Absent: cervical discharge, foreign body, tissue, laceration Bi-manual exam: Present: normal bi-manual exam - Extremities Exam Extremities exam: Present: normal inspection - Back Exam Back exam: Present: normal inspection - Neurological Exam Neurological exam: Present: alert, oriented X3 - Psychiatric Psychiatric exam: Present: normal affect, normal mood - Skin Skin exam: Present: warm, dry, intact, normal color. Absent: rash ED Course Vital Signs 11/08/19 13:10 Temperature 98.8 F Pulse Rate 84 Respiratory 16 Rate Blood Pressure 127/62 O2 Sat by Pulse 100 Oximetry ED Medical Decision Making - Medical Decision Making 34-year-old female presents for a tampon stuck in vagina. Upon evaluation to was no foreign object visualized in the vaginal wall. I discussed this with the patient. Is no abnormal findings. Discussed the patient to follow-up with GLUE MACHINE OPERATOR. Vital signs are normal patient is in no acute distress Critical care attestation.: If time is entered above; I have spent that time in minutes in the direct care of this critically ill patient, excluding procedure time. ED Disposition Clinical Impression: Foreign body in vagina Disposition: DC-01 TO HOME OR SELFCARE Is pt being admited?: No Does the pt Need Aspirin: No Condition: Stable Instructions: Vaginal Foreign Body (ED) Additional Instructions: Make sure to follow up with the GLUE MACHINE OPERATOR as discussed. Take all your medications as you've been prescribed. If you have any worsening symptoms or develop new symptoms please return to ED immediately. Referrals: PRIMARY CARE, [Primary Care Provider] - 3-5 Days [facility] [Outside] - 3-5 Days [facility] [Outside] - 3-5 Days Forms: Work/School Release Form(ED) Time of Disposition: 15:00
== END 2019-11-08 15:30 | disposition home or self-care (01) ==
LOC: ED 12:49
DX: T19.2XXA Foreign body in vulva and vagina, initial encounter (principal); J45.909 Unspecified asthma, uncomplicated; X58.XXXA Exposure to other specified factors, initial encounter; Y93.89 Activity, other specified; Y92.89 Other specified places as the place of occurrence of the external cause; Y99.8 Other external cause status

== ENCOUNTER 2019-11-19 11:49 | Emergency (ER) | payer MEDICAID ==
--- NOTE | 2019-11-19 12:29 | Event Note ---
ED Screening Note Date of service: 11/19/19 Time: 12:27 ED Screening Note: Pt c/o left upper dental pain x 3 days and low back pain x 1 week states lesion on gums denies fever or facial swelling This initial assessment/diagnostic orders/clinical plan/treatment(s) is/are subject to change based on patients health status, clinical progression and re- assessment by fellow clinical providers in the ED. Further treatment and workup at subsequent clinical providers discretion. Patient/guardian urged not to elope from the ED as their condition may be serious if not clinically assessed and managed. Initial orders include: ACC eval
[2019-11-19 14:25] LABS: Bilirubin,Urine NEG (Negative); Blood,Urine NEG (Negative); Color,Urine Yellow (Yellow); Mucus,Urine 3+ /HPF; Protein,Urine <15 mg/dL mg/dL (Negative); WBC,Urine < 1.0 /HPF (0.0-6.0)
--- NOTE | 2019-11-19 15:01 | Emergency Department Report ---
ED General Adult HPI - General Chief complaint: Back Pain/Injury Stated complaint: BACK PAIN/TOOTHACHE Time Seen by Provider: 11/19/19 12:27 Source: patient Mode of arrival: Wheelchair Limitations: No Limitations - History of Present Illness Initial comments: pt is a 34-year-old female presents emergency room with complaints of left lower back pain that began 2 days ago. She states that she just joined a gym 6 days ago and has been working out. She denies any fall or injury. She denies any numbness, weakness, bowel or bladder incontinence. She states that she also is complaining of left upper dental pain that has been there for a while. Patient states that her wisdom tooth needs to be removed but she was at the time. She states that she last saw dentist possibly 4 months ago and it was recommended at that time for it to be removed. She denies any fever or facial swelling. She has a past medical history of asthma and anemia. She denies any allergies medications. pt states that she has been taking "tylenol, muscle relaxer and percocet" - Related Data Previous Rx's Medication Instructions Recorded Last Taken Type Ferrous Sulfate [Slow Release Iron 250 mg PO BID 30 Days #60 tablet.er 10/16/19 Unknown Rx 250 MG] Cyclobenzaprine [Flexeril] 10 mg PO QHS PRN #10 tablet 11/19/19 Unknown Rx Naproxen [EC-Naprosyn] 500 mg PO BID PRN #14 tablet. 11/19/19 Unknown Rx Allergies Allergy/AdvReac Type Severity Reaction Status Date / Time No Known Allergies Allergy Verified 11/08/19 12:54 ED Review of Systems ROS: Stated complaint: BACK PAIN/TOOTHACHE Other details as noted in HPI Comment: All other systems reviewed and negative ED Past Medical Hx - Past Medical History Previous Medical History?: Yes Hx Hypertension: No Hx Congestive Heart Failure: No Hx Diabetes: No Hx Deep Vein Thrombosis: No Hx Renal Disease: No Hx Sickle Cell Disease: No Hx Seizures: No Hx Asthma: Yes Hx COPD: No Hx HIV: No - Social History Smoking Status: Never Smoker Substance Use Type: None - Medications Home Medications: Home Medications Medication Instructions Recorded Confirmed Last Taken Type Ferrous Sulfate [Slow Release Iron 250 mg PO BID 30 Days #60 tablet.er 10/16/19 Unknown Rx 250 MG] Cyclobenzaprine [Flexeril] 10 mg PO QHS PRN #10 tablet 11/19/19 Unknown Rx Naproxen [EC-Naprosyn] 500 mg PO BID PRN #14 tablet. 11/19/19 Unknown Rx ED Physical Exam - General Limitations: No Limitations General appearance: alert, in no apparent distress - Head Head exam: Present: atraumatic, normocephalic - Eye Eye exam: Present: normal appearance - ENT ENT exam: Present: normal orophraynx, mucous membranes moist, other (left upper wisdom tooth is cracked, no edema or induration to the gumline, no facial edema, uvula is midline, no uvular edema, small shallow ulceration present to the inner lower lip) - Neck Neck exam: Present: normal inspection, full ROM. Absent: tenderness - Respiratory Respiratory exam: Present: normal lung sounds bilaterally. Absent: respiratory distress, wheezes, rales, rhonchi, stridor, chest wall tenderness, accessory muscle use, decreased breath sounds, prolonged expiratory - Cardiovascular Cardiovascular Exam: Present: regular rate, normal rhythm, normal heart sounds. Absent: systolic murmur, diastolic murmur, rubs, gallop - Back Exam Back exam: Present: normal inspection, full ROM, paraspinal tenderness (left sided lumbar paraspinal muscular TTP, no mildine C-spine, T-spine or L-spine tenderness, no step offs, no deformities). Absent: vertebral tenderness - Neurological Exam Neurological exam: Present: alert, oriented X3 - Psychiatric Psychiatric exam: Present: normal affect, normal mood - Skin Skin exam: Present: warm, dry, intact ED Course Vital Signs 11/19/19 11/19/19 12:27 15:11 Temperature 98.1 F 98.5 F Pulse Rate 75 91 H Respiratory 18 16 Rate Blood Pressure 117/73 Blood Pressure 133/88 [Right] O2 Sat by Pulse 99 99 Oximetry ED Medical Decision Making - Lab Data Lab Results 11/19/19 11/19/19 Range/Units 12:33 12:57 HCG, Quant < 2 (0-4) mIU/mL Urine Color Yellow (Yellow) Urine Turbidity Clear (Clear) Urine pH 5.0 (5.0-7.0) Ur Specific [place] 1.028 (1.003-1.030) Urine Protein <15 mg/dl (Negative) mg/dL Urine Glucose (UA) Neg (Negative) mg/dL Urine Ketones Neg (Negative) mg/dL Urine Blood Neg (Negative) Urine Nitrite Neg (Negative) Urine Bilirubin Neg (Negative) Urine Urobilinogen 4.0 (<2.0) mg/dL Ur Leukocyte Esterase Neg (Negative) Urine WBC (Auto) < 1.0 (0.0-6.0) /HPF Urine RBC (Auto) 1.0 (0.0-6.0) /HPF U Epithel Cells (Auto) < 1.0 (0-13.0) /HPF Urine Mucus 3+ /HPF - Medical Decision Making pt is a 34-year-old female presents emergency room with complaints of left lower back pain that began 2 days ago. She states that she just joined a gym 6 days ago and has been working out. She denies any fall or injury. She denies any numbness, weakness, bowel or bladder incontinence. She states that she also is complaining of left upper dental pain that has been there for a while. Patient states that her wisdom tooth needs to be removed but she was at the time. She states that she last saw dentist possibly 4 months ago and it was recommended at that time for it to be removed. She denies any fever or facial swelling. She has a past medical history of asthma and anemia. She denies any allergies medications. pt states that she has been taking "tylenol, muscle relaxer and percocet" vitals are normal. hcg is negative. UA is WNL. on exam: left upper wisdom tooth is cracked, no edema or induration to the gumline, no facial edema, uvula is midline, no uvular edema, small shallow ulceration present to the inner lower lip, left sided lumbar paraspinal muscular TTP, no mildine C-spine, T-spine or L-spine tenderness, no step offs, no deformities. no signs of facial cellulitis or dental abscess. small ulceration consistent with canker sore. back exam consistent with muscle strain, no midline tenderness, no neurologic deficits, pt is ambulatory. pt has no red flag warning signs of back pain, no trauma, no unexplained weight loss, no neuro deficits, age is not greater than 50, no fever, no IVDU, no steroid use, no hx of CA. pt given naproxen and flexeril prescription. pt given flexeril while in the ED as she did not drive. Please take medication as prescribed as needed. Do not drive or operate heavy machinery while taking muscle relaxer. do Not breast-feed while taking medication. May use ice pack, heating pad, rest, epsom salt bath. Follow-up with orthopedic doctor and a dentist in the next 2-3 days. Return to the emergency room for any new or worsening symptoms. Critical care attestation.: If time is entered above; I have spent that time in minutes in the direct care of this critically ill patient, excluding procedure time. ED Disposition Clinical Impression: Cracked tooth, Toothache Low back strain Qualifiers: Encounter type: initial encounter Qualified Code(s): S39.012A - Strain of muscle, fascia and tendon of lower back, initial encounter Disposition: TO HOME OR SELFCARE Is pt being admited?: No Does the pt Need Aspirin: No Condition: Stable Instructions: Muscle Strain (ED) Additional Instructions: Please take medication as prescribed as needed. Do not drive or operate heavy machinery while taking muscle relaxer. do Not breast-feed while taking medication. May use ice pack, heating pad, rest, epsom salt bath. Follow-up with orthopedic doctor and a dentist in the next 2-3 days. Return to the emergency room for any new or worsening symptoms. Prescriptions: Cyclobenzaprine [Flexeril] 10 mg PO QHS PRN #10 tablet PRN Reason: Muscle Spasm Naproxen [EC-Naprosyn] 500 mg PO BID PRN #14 tablet.dr REINOSO Reason: pain Referrals: [facility] [Outside] - 2-3 Days AYAN KITCHEN MD [Staff Physician] - 2-3 Days Forms: Work/School Release Form(ED) Time of Disposition: 15:00 Print Language: VIET[place]ESE
[2019-11-19] MEDS ORDERED: CYCLOBENZAPRINE 10 MG TAB PO ONE (15:08)
[2019-11-19 15:13] VITALS: BP 133/88
== END 2019-11-19 15:14 | disposition home or self-care (01) ==
LOC: ED 11:49
DX: S39.012A Strain of muscle, fascia and tendon of lower back, initial encounter (principal); K03.81 Cracked tooth; J45.909 Unspecified asthma, uncomplicated; Z79.899 Other long term (current) drug therapy; X58.XXXA Exposure to other specified factors, initial encounter; Y93.89 Activity, other specified; Y92.89 Other specified places as the place of occurrence of the external cause; Y99.8 Other external cause status
CPT/HCPCS: 36415; 81001; 84702

== ENCOUNTER 2020-08-24 07:10 | Emergency (ER) | payer SELFPAY ==
[2020-08-24 07:24] VITALS: BP 129/82
[2020-08-24 08:46] LABS: Bilirubin,Urine NEG (Negative); Blood,Urine MOD (Negative); Color,Urine Yellow (Yellow); Mucus,Urine FEW /HPF; Protein,Urine <15 mg/dL mg/dL (Negative)
[2020-08-24 08:52] LABS: HCG Qualitative,Urine Negative (Negative)
[2020-08-24 08:55] LABS: Hematocrit 34.3 % (30.3-42.9); Hemoglobin 11.3 gm/dl (10.1-14.3); Mean Corpuscular HGB Conc 33 % (30-34); Mean Corpuscular Volume 88 fl (79-97); Platelet Count 186 K/mm3 (140-440); Red Cell Distribution Width 13.9 % (13.2-15.2)
[2020-08-24 09:03] LABS: Alanine Aminotransferase 15 units/L (7-56); Blood Urea Nitrogen 13 mg/dL (7-17); Calcium 9.4 mg/dL (8.4-10.2); Hemolysis Index 2
[2020-08-24 09:07] LABS: BUN/Creatinine Ratio 26
--- NOTE | 2020-08-24 09:09 | Emergency Department Report ---
ED General Adult HPI - General Chief complaint: Adult Asthma Stated complaint: CP/ABD PAIN Source: patient Mode of arrival: Ambulatory Limitations: No Limitations - History of Present Illness Initial comments: 34-year-old -[place] female comes in reporting she had chest tightness and wheezing early early this morning. Patient also states that she has abdominal pain since 4 AM. Patient reports that she that she was seen at [facility] 2 days ago and was given a prescription for an inhaler but does not have insurance and did not fill her prescription. Patient states she is able to drink and eat with no problems. Patient reports she has pelvic pain 5 out of 10. She denies any fever chills no nausea no vomiting. She does report urinary frequency. She also reports that she has been having bleeding after she had intercourse on Tuesday that was spotting and then having clots now. -: This morning Time: 04:00 Location: pelvis Severity scale (0 -10): 5 Quality: aching Consistency: constant Improves with: none Worsens with: none Associated Symptoms: chest pain (Resolved). denies: cough, fever/chills, malaise, nausea/vomiting, shortness of breath, weakness Treatments Prior to Arrival: none - Related Data Previous Rx's Medication Instructions Recorded Last Taken Type Ferrous Sulfate [Slow Release Iron 250 mg PO BID 30 Days #60 tablet.er 10/16/19 Unknown Rx 250 MG] Cyclobenzaprine [Flexeril] 10 mg PO QHS PRN #10 tablet 11/19/19 Unknown Rx Naproxen [EC-Naprosyn] 500 mg PO BID PRN #14 tablet. 11/19/19 Unknown Rx metroNIDAZOLE [Flagyl TAB] 500 mg PO Q8HR 7 Days #21 tablet 08/24/20 Unknown Rx Allergies Allergy/AdvReac Type Severity Reaction Status Date / Time No Known Allergies Allergy Verified 11/08/19 12:54 ED Review of Systems ROS: Stated complaint: CP/ABD PAIN Other details as noted in HPI Comment: All other systems reviewed and negative ED Past Medical Hx - Past Medical History Previous Medical History?: Yes Hx Hypertension: No Hx Congestive Heart Failure: No Hx Diabetes: No Hx Deep Vein Thrombosis: No Hx Renal Disease: No Hx Sickle Cell Disease: No Hx Seizures: No Hx Asthma: Yes Hx COPD: No Hx HIV: No - Surgical History Past Surgical History?: No - Social History Smoking Status: Former Smoker Substance Use Type: Alcohol, Prescribed - Medications Home Medications: Home Medications Medication Instructions Recorded Confirmed Last Taken Type Ferrous Sulfate [Slow Release Iron 250 mg PO BID 30 Days #60 tablet.er 10/16/19 Unknown Rx 250 MG] Cyclobenzaprine [Flexeril] 10 mg PO QHS PRN #10 tablet 11/19/19 Unknown Rx Naproxen [EC-Naprosyn] 500 mg PO BID PRN #14 tablet. 11/19/19 Unknown Rx metroNIDAZOLE [Flagyl TAB] 500 mg PO Q8HR 7 Days #21 tablet 08/24/20 Unknown Rx ED Physical Exam - General Limitations: No Limitations General appearance: alert, in no apparent distress - Head Head exam: Present: atraumatic, normocephalic - Eye Eye exam: Present: normal appearance - ENT ENT exam: Present: normal exam, mucous membranes moist - Neck Neck exam: Present: normal inspection, full ROM - Respiratory Respiratory exam: Present: normal lung sounds bilaterally. Absent: respiratory distress - Cardiovascular Cardiovascular Exam: Present: regular rate, normal rhythm. Absent: systolic murmur, diastolic murmur, rubs, gallop - GI/Abdominal GI/Abdominal exam: Present: soft. Absent: distended, tenderness, guarding - External exam: Present: normal external exam Speculum exam: Present: vaginal bleeding Bi-manual exam: Present: normal bi-manual exam - Extremities Exam Extremities exam: Present: normal inspection, full ROM - Back Exam Back exam: Present: normal inspection, full ROM - Neurological Exam Neurological exam: Present: alert, oriented X3, normal gait - Psychiatric Psychiatric exam: Present: normal affect, normal mood - Skin Skin exam: Present: warm, dry, intact, normal color. Absent: rash ED Course Vital Signs 08/24/20 07:14 Temperature 97.8 F Pulse Rate 91 H Respiratory 20 Rate Blood Pressure 129/82 O2 Sat by Pulse 99 Oximetry ED Medical Decision Making - Lab Data Laboratory Tests 08/24/20 08/24/20 08/24/20 08:23 08:25 08:25 WBC 5.1 RBC 3.90 Hgb 11.3 Hct 34.3 MCV 88 MCH 29 MCHC 33 RDW 13.9 Plt Count 186 Sodium 139 Potassium 4.0 Chloride 101.8 Carbon Dioxide 26 Anion Gap 15 BUN 13 Creatinine 0.5 L Estimated GFR > 60 BUN/Creatinine Ratio 26 Glucose 96 Calcium 9.4 Total Bilirubin 0.40 AST 18 ALT 15 Alkaline Phosphatase 69 Total Protein 6.6 Albumin 4.0 Albumin/Globulin Ratio 1.5 Urine Color Yellow Urine Turbidity Clear Urine pH 6.0 Ur Specific Hardin 1.019 Urine Protein <15 mg/dl Urine Glucose (UA) Neg Urine Ketones Neg Urine Blood Mod Urine Nitrite Neg Urine Bilirubin Neg Urine Urobilinogen 2.0 Ur Leukocyte Esterase Neg Urine WBC (Auto) 1.0 Urine RBC (Auto) 4.0 U Epithel Cells (Auto) 1.0 Urine Mucus Few Urine HCG, Qual Negative - Medical Decision Making 34-year-old -[place] female comes in reporting she had chest tightness and wheezing early early this morning. Patient also states that she has abdo teresa pain since 4 AM. Patient reports that she that she was seen at [facility] 2 days ago and was given a prescription for an inhaler but does not have insurance and did not fill her prescription. Patient states she is able to drink and eat with no problems. Patient reports she has pelvic pain 5 out of 10. She denies any fever chills no nausea no vomiting. She does report urinary frequency. She also reports that she has been having bleeding after she had intercourse on Tuesday that was spotting and then having clots now. Critical care attestation.: If time is entered above; I have spent that time in minutes in the direct care of this critically ill patient, excluding procedure time. ED Disposition Clinical Impression: Pelvic pain, BV (bacterial vaginosis) Disposition: - TO HOME OR SELFCARE Is pt being admited?: No Does the pt Need Aspirin: No Condition: Stable Instructions: Bacterial Vaginosis (ED) Additional Instructions: Microbiology came back positive for bacterial vaginosis. Your gonorrhea and Chlamydia tests are pending. You can bring your picture ID to medical records in 5 to 7 days to obtain your gonorrhea chlamydia test if they come back positive you will need to be treated. Prescriptions: metroNIDAZOLE [Flagyl TAB] 500 mg PO Q8HR 7 Days #21 tablet Forms: STI Treatment and Prevention
== END 2020-08-24 10:54 | disposition home or self-care (01) ==
LOC: ED 07:10
DX: N76.0 Acute vaginitis (principal); B96.89 Other specified bacterial agents as the cause of diseases classified elsewhere; J45.909 Unspecified asthma, uncomplicated; Z87.891 Personal history of nicotine dependence
CPT/HCPCS: 36415; 80053; 81001; 81025; 85027; 87210; 87591

== ENCOUNTER 2021-10-14 00:56 | Emergency (ER) | payer MEDICAID ==
[2021-10-14] MEDS ORDERED: ACETAMINOPHEN 500 MG TAB PO ONE (01:16)
--- NOTE | 2021-10-14 01:28 | Emergency Department Report ---
ED Back Pain/Injury HPI - General Chief Complaint: Abdominal Pain Stated Complaint: ABDOMINAL PAIN Time Seen by Provider: 10/14/21 01:08 Source: patient Limitations: No Limitations - History of Present Illness Initial Comments: Chief complaint: Back pain HPI: This is a 36-year-old female with history of asthma, anemia presents with gradual onset of left flank pain on Tuesday. No heavy lifting. Achy pain. Denies any pain. Mild improved with Tylenol. She denies leg weakness bowel or bladder incontinence. She has had irregular vaginal bleeding. She denies hematuria. She denies fever MD Complaint: back pain -: Gradual, days(s) (3 days) Similar Symptoms Previously: No Radiation: none Severity: severe Severity scale (0 -10): 10 Quality: aching Consistency: constant Improves With: immobilization Worsens With: movement Associated Symptoms: other (Vaginal bleeding) - Related Data Previous Rx's Medication Instructions Recorded Last Taken Type Ferrous Sulfate [Slow Release Iron 250 mg PO BID 30 Days #60 tablet.er 10/16/19 Unknown Rx 250 MG] Cyclobenzaprine [Flexeril] 10 mg PO QHS PRN #10 tablet 11/19/19 Unknown Rx Naproxen [EC-Naprosyn] 500 mg PO BID PRN #14 tablet.dr 11/19/19 Unknown Rx metroNIDAZOLE [Flagyl TAB] 500 mg PO Q8HR 7 Days #21 tablet 08/24/20 Unknown Rx Cyclobenzaprine [Flexeril] 10 mg PO TID PRN #20 tablet 10/14/21 Unknown Rx Ibuprofen [Motrin 400 MG tab] 400 mg PO TID 5 Days #15 tablet 10/14/21 Unknown Rx Allergies Allergy/AdvReac Type Severity Reaction Status Date / Time Penicillins Allergy Unknown Verified 10/14/21 01:06 ED Review of Systems ROS: Stated complaint: ABDOMINAL PAIN Other details as noted in HPI Comment: All other systems reviewed and negative Constitutional: denies: chills, fever, malaise Respiratory: denies: cough, shortness of breath Cardiovascular: denies: chest pain Gastrointestinal: denies: abdominal pain, nausea, vomiting Genitourinary: abnormal menses Musculoskeletal: back pain ED Past Medical Hx - Past Medical History Previous Medical History?: Yes Hx Hypertension: No Hx Congestive Heart Failure: No Hx Diabetes: No Hx Deep Vein Thrombosis: No Hx Renal Disease: No Hx Sickle Cell Disease: No Hx Seizures: No Hx Asthma: Yes Hx COPD: No Hx HIV: No - Surgical History Past Surgical History?: No - Social History Smoking Status: Former Smoker Substance Use Type: Alcohol, Prescribed - Medications Home Medications: Home Medications Medication Instructions Recorded Confirmed Last Taken Type Ferrous Sulfate [Slow Release Iron 250 mg PO BID 30 Days #60 tablet.er 10/16/19 Unknown Rx 250 MG] Cyclobenzaprine [Flexeril] 10 mg PO QHS PRN #10 tablet 11/19/19 Unknown Rx Naproxen [EC-Naprosyn] 500 mg PO BID PRN #14 tablet.dr 11/19/19 Unknown Rx metroNIDAZOLE [Flagyl TAB] 500 mg PO Q8HR 7 Days #21 tablet 08/24/20 Unknown Rx Cyclobenzaprine [Flexeril] 10 mg PO TID PRN #20 tablet 10/14/21 Unknown Rx Ibuprofen [Motrin 400 MG tab] 400 mg PO TID 5 Days #15 tablet 10/14/21 Unknown Rx ED Physical Exam - General Limitations: No Limitations General appearance: alert, in no apparent distress, other (Appears comfortable appears in no acute distress) - Head Head exam: Present: atraumatic, normocephalic - Eye Eye exam: Present: normal appearance - ENT ENT exam: Present: mucous membranes moist - Neck Neck exam: Present: normal inspection, full ROM - Respiratory Respiratory exam: Present: normal lung sounds bilaterally. Absent: respiratory distress, wheezes, rales, rhonchi - Cardiovascular Cardiovascular Exam: Present: regular rate, normal rhythm, normal heart sounds. Absent: systolic murmur, diastolic murmur, rubs, gallop - GI/Abdominal GI/Abdominal exam: Present: soft, normal bowel sounds. Absent: distended, tenderness, guarding, rebound - Extremities Exam Extremities exam: Present: normal inspection - Back Exam Back exam: Present: normal inspection, full ROM. Absent: tenderness, CVA tenderness (R), CVA tenderness (L), muscle spasm, paraspinal tenderness, vertebral tenderness, rash noted - Neurological Exam Neurological exam: Present: alert, oriented X3 - Psychiatric Psychiatric exam: Present: normal affect, normal mood - Skin Skin exam: Present: warm, dry, intact, normal color. Absent: rash ED Course Vital Signs 10/14/21 00:58 Temperature 98.6 F Pulse Rate 75 Respiratory 18 Rate Blood Pressure 139/83 O2 Sat by Pulse 98 Oximetry ED Medical Decision Making - Radiology Data Radiology results: report reviewed Findings Reporting MD: Dakota Peck Dictation Time: October 14, 2021 01:54 Accounts Receivable Bookkeeper: Not available Child Welfare Specialist Date: CT ABDOMEN AND PELVIS WITHOUT CONTRAST INDICATION / CLINICAL INFORMATION: Pt complains of LEFT sided flank pain. TECHNIQUE: Axial CT images were obtained through the abdomen and pelvis without IV contrast. All CT scans at this location are performed using CT dose reduction for ALARA by means of automated exposure control. COMPARISON: None available. FINDINGS: LOWER CHEST: No significant abnormality. LIVER: No significant abnormality. GALLBLADDER: No significant abnormality. BILE DUCTS: No significant abnormality. PANCREAS: No significant abnormality. SPLEEN: No significant abnormality. ADRENALS: No significant abnormality. RIGHT KIDNEY / URETER: 1 mm nonobstructing stone lower pole. LEFT KIDNEY / URETER: 5 mm calcification deep within the pelvis. This is in the region of the distal ureter which is not visualized. STOMACH / SMALL BOWEL: No significant abnormality. COLON: No significant abnormality. APPENDIX: No significant abnormality. PERITONEUM: No free fluid. No free air. No fluid collection. LYMPH NODES: No significant adenopathy. VASCULAR STRUCTURES: No significant abnormality. URINARY BLADDER: No significant abnormality. REPRODUCTIVE ORGANS: Prominent uterus. ADDITIONAL FINDINGS: None. SKELETAL SYSTEM: No significant abnormality. IMPRESSION: 1. 1 mm nonobstructing right renal stone. 2. 5 mm calcification deep within the pelvis in the region of the distal ureterovesical junction. This is favored to be a phlebolith rather than a nonobstructing stone. Signer Name: Dakota Peck MD Signed: 10/14/2021 1:54 AM Workstation Name: [id number] - Medical Decision Making Musculoskeletal back pain: CT abdomen pelvis negative for kidney process, urinalysis negative for infection hCG negative. Prescribed ibuprofen Flexeril. Critical care attestation.: If time is entered above; I have spent that time in minutes in the direct care of this critically ill patient, excluding procedure time. ED Disposition Clinical Impression: Low back strain Disposition: 01 HOME / SELF CARE / HOMELESS Is pt being admited?: No Does the pt Need Aspirin: No Condition: Stable Instructions: Abdominal Pain (ED), Lumbar Sprain Prescriptions: Cyclobenzaprine [Flexeril] 10 mg PO TID PRN #20 tablet PRN Reason: Muscle Spasm Ibuprofen [Motrin 400 MG tab] 400 mg PO TID 5 Days #15 tablet Referrals: PRIMARY CARE, [Referring] - 3-5 Days
[2021-10-14 02:02] LABS: Bilirubin,Urine NEG (Negative); Blood,Urine NEG (Negative); Color,Urine Yellow (Yellow); Mucus,Urine FEW /HPF; Protein,Urine <15 mg/dL mg/dL (Negative); RBC,Urine < 1.0 /HPF (0.0-6.0)
[2021-10-14 02:16] LABS: HCG Qualitative,Urine Negative (Negative)
--- NOTE | 2021-10-14 02:58 | Cat Scan Report ---
CT ABDOMEN AND PELVIS WITHOUT CONTRAST INDICATION / CLINICAL INFORMATION: Pt complains of LEFT sided flank pain. TECHNIQUE: Axial CT images were obtained through the abdomen and pelvis without IV contrast. All CT scans at this location are performed using CT dose reduction for ALARA by means of automated exposure control. COMPARISON: None available. FINDINGS: LOWER CHEST: No significant abnormality. LIVER: No significant abnormality. GALLBLADDER: No significant abnormality. BILE DUCTS: No significant abnormality. PANCREAS: No significant abnormality. SPLEEN: No significant abnormality. ADRENALS: No significant abnormality. RIGHT KIDNEY / URETER: 1 mm nonobstructing stone lower pole. LEFT KIDNEY / URETER: 5 mm calcification deep within the pelvis. This is in the region of the distal ureter which is not visualized. STOMACH / SMALL BOWEL: No significant abnormality. COLON: No significant abnormality. APPENDIX: No significant abnormality. PERITONEUM: No free fluid. No free air. No fluid collection. LYMPH NODES: No significant adenopathy. VASCULAR STRUCTURES: No significant abnormality. URINARY BLADDER: No significant abnormality. REPRODUCTIVE ORGANS: Prominent uterus. ADDITIONAL FINDINGS: None. SKELETAL SYSTEM: No significant abnormality. IMPRESSION: 1. 1 mm nonobstructing right renal stone. 2. 5 mm calcification deep within the pelvis in the region of the distal ureterovesical junction. Thi s is favored to be a phlebolith rather than a nonobstructing stone. Signer Name: Dakota Peck MD Signed: 10/14/2021 2:54 AM Workstation Name: [id number]
[2021-10-14 05:06] VITALS: BP 115/69
== END 2021-10-14 04:31 | disposition home or self-care (01) ==
LOC: ED 00:56
DX: S39.012A Strain of muscle, fascia and tendon of lower back, initial encounter (principal); J45.909 Unspecified asthma, uncomplicated; R10.9 Unspecified abdominal pain; Z88.0 Allergy status to penicillin; Z79.899 Other long term (current) drug therapy; X58.XXXA Exposure to other specified factors, initial encounter; Y93.89 Activity, other specified; Y92.488 Other paved roadways as the place of occurrence of the external cause; Y99.8 Other external cause status
CPT/HCPCS: 74176; 81001; 81025; 99284